=== PATIENT | female | born 1960 | race African-American/Black ===

== ENCOUNTER → 2018-10-10 | Outpatient (CLI) | payer OTHER ==
--- NOTE | 2018-10-10 15:15 | CARD ---
MR#: [id number] Date of Study: 10/10/2018 Ordering Physician: JUSTINE LUCIANO, Referring Physician: JUSTINE LUCIANO, Tech: Lawanda Reynoso LAN APPROVED REPORT EXAM: Two-dimensional and M-mode echocardiogram with Doppler and color Doppler. Other Information Quality : Good INDICATION Palpitations 2D DIMENSIONS RVDd2.6 (2.9-3.5cm)Left Atrium(2D)3.2 (1.6-4.0cm) IVSd0.7 (0.7-1.1cm)Aortic Root(2D)2.2 (2.0-3.7cm) LVDd4.4 (3.9-5.9cm)LVOT Diameter1.9 (1.8-2.4cm) PWd0.8 (0.7-1.1cm)LVDs3.0 (2.5-4.0cm) FS (%) 30.0 %SV41.2 ml LVEF(%)60.0 (>50%) Aortic Valve AoV Peak Jairo.166.8cm/sAoV VTI26.7cm AO Peak GR.11.1mmHgLVOT Peak Jairo.157.7cm/s LVOT VTI 25.18cmAO Mean GR.6mmHg ARMIDA (VMAX)2.77oi0PJJ (VTI)2.65cm2 Mitral Valve MV E Dogwsbva33.0cm/sMV DECEL YKZQ978ai MV A Htfqbsfa041.7cm/sMV HZX729dp E/A Ratio0.6MVA (PHT)2.20cm2 TDI E/Lateral E'13.5E/Medial E'10.5 Tricuspid Valve TR P. Zokpxymf318un/sRAP SDKTJENR3onKl TR Peak Gr.85wcTqXXBJ87cdQs Pulmonary Vein S1 Jdmpmble41.4cm/sD2 Viozdvga73.2cm/s LEFT VENTRICLE The left ventricle is normal size. There is borderline to mild concentric left ventricular hypertroph y. The left ventricular systolic function is normal and the ejection fraction is within normal range. The Ejection Fraction is 60-65%. There is normal LV segmental wall motion. Transmitral Doppler flow pattern is Grade I-abnormal relaxation pattern. RIGHT VENTRICLE The right ventricle is normal size. The right ventricular systolic function is normal. ATRIA The left atrium size is normal. The right atrium size is normal. The interatrial septum is intact wit h no evidence for an atrial septal defect or patent foramen ovale as noted on 2-D or Doppler imaging. AORTIC VALVE The aortic valve is calcified but opens well. Doppler and Color Flow revealed no significant aortic r egurgitation. There is no significant aortic valvular stenosis. MITRAL VALVE The mitral valve is normal in structure and function. There is no evidence of mitral valve prolapse. There is no mitral valve stenosis. Doppler and Color-flow revealed trace mitral regurgitation. TRICUSPID VALVE The tricuspid valve is normal in structure and function. Doppler and Color Flow revealed trace tricus pid regurgitation. There is mild pulmonary hypertension. The PA pressure was estimated at 32 mmHg. Th ere is no tricuspid valve stenosis. PULMONIC VALVE The pulmonic valve is not well visualized. Doppler and Color Flow revealed mild pulmonic valvular reg urgitation. There is no pulmonic valvular stenosis. GREAT VESSELS The aortic root is normal in size. The ascending aorta is not well seen. The IVC is normal in size an d collapses >50% with inspiration. PERICARDIAL EFFUSION There is no evidence of significant pericardial effusion. Critical Notification Critical Value: No <Conclusion> The left ventricular systolic function is normal and the ejection fraction is within normal range. Th e Ejection Fraction is 60-65%. Normal wall motion. There is mild outflow tract obstruction, with a peak velocity of 1.6 m/s likely due to hyperdynamic L V function. Signed by : Justine Luciano, Electronically Approved : 10/10/2018 15:15:01
== END | disposition home or self-care (01) ==
LOC: ECHO 13:34
PROVIDERS: ATTEND Internal Medicine Cardiovascular Disease
DX: I08.8 Other rheumatic multiple valve diseases (principal); I27.20 Pulmonary hypertension, unspecified
CPT/HCPCS: 93306

== ENCOUNTER 2019-01-20 01:48 | Emergency (ER) | payer OTHER ==
[~2019-01-20] VITALS: Ht 157.5 cm; Wt 108.9 kg
[2019-01-20] MEDS ORDERED: fentaNYL PF VIAL 100 MCG/2 ML VIAL IV ONE (03:00)
[2019-01-20] MEDS ORDERED: ETOMIDATE 20 MG/10 ML VIAL. IV ONE (03:00)
[2019-01-20] MEDS ORDERED: IV NORMAL SALINE 1000ML BAG 1,000 ML IV ONE (03:00)
[2019-01-20 03:07] LABS: BASO # 0.1 x10^3/uL (0.0-0.2); BASO % 0 % (0-3); EOS % 0 % (0-3); HEMATOCRIT 36.3 % (36.0-47.0); HEMOGLOBIN 12.4 g/dL (12.0-15.5); LYMPH # 0.6 x10^3/uL (1.0-4.8); LYMPH % 5 % (24-48); MEAN CORPUSCULAR HEMOGLOBIN 29 pg (25-35); MEAN CORPUSCULAR HGB CONC 34 g/dL (31-37); MEAN CORPUSCULAR VOLUME 85 fL (79-100); MONO # 0.6 x10^3/uL (0.0-1.1); MONO % 5 % (0-9); NEUT # 12.1 x10^3/uL (1.8-7.7); NEUT % 90 % (31-73); PLATELET COUNT 332 x10^3/uL (140-400); RED BLOOD COUNT 4.26 x10^6/uL (3.50-5.40); RED CELL DISTRIBUTION WIDTH 13.8 % (11.5-14.5); WHITE BLOOD COUNT 13.4 x10^3/uL (4.0-11.0)
[2019-01-20 03:10] VITALS: BP 124/78
[2019-01-20 03:38] LABS: ALBUMIN 4.2 g/dL (3.4-5.0); ALBUMIN/GLOBULIN RATIO 1.4 (1.0-1.7); CALCIUM 9.7 mg/dL (8.5-10.1); CREATININE 1.1 mg/dL (0.6-1.0); TOTAL PROTEIN 7.2 g/dL (6.4-8.2)
--- NOTE | 2019-01-20 03:38 | PHYS DOC ---
Past Medical History Past Medical History: High Cholesterol, Hypertension, Other Additional Past Medical Histor: Crohn's Past Surgical History: Cholecystectomy, Hysterectomy, Tonsillectomy, Other Additional Past Surgical Histo: L Knee sx Alcohol Use: Occasionally Drug Use: None Adult General Chief Complaint Chief Complaint: SHOULDER INJURY HPI HPI Patient is a 58 year old [f__sex] who presents with [] Review of Systems Review of Systems Constitutional: Denies fever or chills Eyes: Denies redness or eye pain HENT: Denies nasal congestion or sore throat Respiratory: Denies cough or shortness of breath Cardiovascular: Denies chest pain or palpitations GI: Denies abdominal pain, nausea, or vomiting : Denies dysuria or hematuria Musculoskeletal: Denies back pain or joint pain Integument: Denies rash or skin lesions Neurologic: Denies headache, focal weakness or sensory changes Complete systems were reviewed and found to be within normal limits, except as documented in this note. Physical Exam Physical Exam Constitutional: Well developed, well nourished, no acute distress, non-toxic appearance HENT: Normocephalic, atraumatic, oropharynx moist Eyes: PERRL, EOMI, conjunctiva normal, no discharge Neck: Normal range of motion, no tenderness, supple Cardiovascular: Heart rate normal, regular rhythm Lungs & Thorax: Bilateral breath sounds clear to auscultation, no wheezing Abdomen: Soft, no tenderness Skin: Warm, dry, no erythema, no rash Back: No tenderness, no CVA tenderness Extremities: No tenderness, ROM intact, no edema Neurologic: Alert and oriented X 3, normal motor function, normal sensory function, no focal deficits noted Psychologic: Affect normal, judgement normal, mood normal Current Patient Data Vital Signs Vital Signs Date Time Temp Pulse Resp B/P (MAP) Pulse Ox O2 Delivery O2 Flow Rate FiO2 01/20/19 01:50 98.8 103 17 108/58 (75) 95 Room Air 98.8 EKG EKG @0207 NSR at 97bpm, NO ST elevation, t wave inversion III Radiology/Procedures Radiology/Procedures PROCEDURE: SHOULDER 2+V RIGHT Right shoulder AP scapular x-rays 3 views HISTORY: Right shoulder pain after a fall. FINDINGS: Anterior subcoracoid humeral head dislocation is present. Hill-Sachs impaction fracture deformity of the posterior humeral head is likely present, of indeterminate age. Acromioclavicular joint intact. Small chronic appearing ossicles are present. IMPRESSION: Anterior humeral head dislocation as described above. Electronically signed by: Micheal Mejía MD (01/20/2019 3:38 AM) [facility] PROCEDURE: CT HEAD AND CERVICAL SPINE WO CT head without contrast. CT cervical spine without contrast. PQRS statement: CT scans at this facility use dose reduction including either automated exposure control, iterative reconstructions, and /or weight based radiation dosing via mA and kV modification when appropriate to reduce radiation dose to as low as reasonably achievable. TECHNIQUE: Noncontrast imaging of the head and cervical spine was acquired. HISTORY: Pain after fall. CT head findings: No intracranial hemorrhage, mass, hydrocephalus or infarction. Right periorbital soft tissue swelling. Subcentimeter in thickness right periorbital and frontal scalp hematoma. Orbits, mastoids and bones are unremarkable. IMPRESSION: No acute intracranial CT abnormality. Right periorbital and frontal scalp subcentimeter in thickness hematoma. CT cervical spine findings: Craniocervical junction intact. Cervical vertebral body height and alignment intact. No fracture of the cervical spine. Mild anterior disc osteophytes. Left C4-C5 facet spurring. Lung apices and paraspinal tissues are unremarkable. IMPRESSION: No acute osseous injury of the cervical spine. Electronically signed by: Micheal Mejía MD (01/20/2019 4:16 AM) [facility] PROCEDURE: SHOULDER RIGHT 1V Right shoulder AP scapular x-rays 2 views HISTORY: Status post reduction. FINDINGS: There has been reduction of the anterior humeral head dislocation since prior x-rays. There is a Hill-Sachs cortical impaction deformity of the posterior lateral humeral head of indeterminate age. Small ossicle anterior humeral head is noted. Spurring of the acromioclavicular clavicular joint. IMPRESSION: Reduction of the anterior humeral head dislocation. There is a Hill-Sachs cortical impaction deformity of the humeral head. Electronically signed by: Micheal Mejía MD (01/20/2019 3:39 AM) [facility] Course & Med Decision Making Course & Med Decision Making Pertinent Labs and Imaging studies reviewed. (See chart for details) Patient stable for discharge with outpatient follow-up with PCP. Discussed findings and plan with patient and family, who acknowledge understanding and agreement. Dragon Disclaimer Dragon Disclaimer This electronic medical record was generated, in whole or in part, using a voice recognition dictation system. Joint Reduction Progress Verbal consent obtained. Time out performed. Hand hygiene utilized. Wound cleaned with ChloraPrep. Anesthesia obtained via a 25-gauge hypodermic needle with () mL's of lidocaine 2% with epinephrine. Copious irrigation performed. Wound well approximated with (sutures/puja). Patient tolerated procedure well and without difficulty. Empiric antibiotic ointment applied prior to sterile dressing. Departure Departure Impression: Primary Impression: Fall Additional Impressions: Shoulder dislocation Head contusion Hypokalemia Hypomagnesemia Disposition: HOME, SELF-CARE Condition: STABLE Referrals: IZA SIMMONS MD (PCP) ANA HOLLOWAY MD Patient Instructions: Facial or Scalp Contusion, Velw-lb-Ztjl, Fall Prevention and Home Safety, Epdc-es-Jgof, Hypokalemia-Brief, Hypomagnesemia, Potassium Content of Foods, Shoulder Dislocation, Zjvo-pw-Tgbc, Shoulder Immobilizer Scripts Hydrocodone/Apap 5-325 (NORCO 5-325 TABLET) 1 Each Tablet 0.5-1 TAB PO PRN Q6HRS PRN for PAIN, #10 TAB 0 Refills Prov: SIOBHAN SIMS Sujata BRUMFIELD 01/20/19 MODERATE SEDATION ASSESSMENT* RISKS/ALTERNATIVES Risks/Alternatives Risks and alternatives of this type of sedation and procedure discussed with: RISK/ALTERNATIVES: Patient H & P ON CHART H & P H & P on chart and reviewed for co-morbid conditions and appropriate labs. H&P ON CHART: Yes STATUS PREG STATUS ASSESSED: N/A MEDS/ALLERGIES REVIEWED Meds/Allergies Reviewed Medications and Allergies including time and route of recently administered narcotics and sedatives. MEDS/ALLERGIES REVIEWED: Yes ASA RATING ASA RATING: II AIRWAY ASSESSMENT Airway Assessment Airway patency, oral function limitations, presence of caps, crowns, dentures, partials, and ability to extend neck assessed. AIRWAY ASSESSMENT: Yes MALLAMPATI SCORE MALLAMPATI SCORE: III PRE-SEDATION ASSESSMENT PRE-SEDATION ASSESSMENT: Yes Problem Qualifiers Primary Impression: Fall Encounter type: initial encounter Qualified Codes: W19.XXXA - Unspecified fall, initial encounter Additional Impressions: Shoulder dislocation Encounter type: initial encounter Laterality: right Qualified Codes: S43.004A - Unspecified dislocation of right shoulder joint, initial encounter Head contusion Encounter type: initial encounter Contusion of head detail: unspecified part of head Qualified Codes: S00.93XA - Contusion of unspecified part of head, initial encounter SIOBHAN SIMS DO Jan 20, 2019 03:38
[2019-01-20 03:39] LABS: GFR 61.5; MAGNESIUM 1.7 mg/dL (1.8-2.4); POTASSIUM 3.1 mmol/L (3.5-5.1)
--- NOTE | 2019-01-20 03:41 | RAD ---
Right shoulder AP scapular x-rays 3 views HISTORY: Right shoulder pain after a fall. FINDINGS: Anterior subcoracoid humeral head dislocation is present. Hill-Sachs impaction fracture deformity of the posterior humeral head is likely present, of indeterminate age. Acromioclavicular joint intact. Small chronic appearing ossicles are present. IMPRESSION: Anterior humeral head dislocation as described above. Electronically signed by: Micheal Mejía MD (01/20/2019 3:38 AM) [facility]
--- NOTE | 2019-01-20 03:42 | RAD ---
Right shoulder AP scapular x-rays 2 views HISTORY: Status post reduction. FINDINGS: There has been reduction of the anterior humeral head dislocation since prior x-rays. There is a Hill-Sachs cortical impaction deformity of the posterior lateral humeral head of indeterminate age. Small ossicle anterior humeral head is noted. Spurring of the acromioclavicular clavicular joint. IMPRESSION: Reduction of the anterior humeral head dislocation. There is a Hill-Sachs cortical impaction deformity of the humeral head. Electronically signed by: Micheal Mejía MD (01/20/2019 3:39 AM) [facility]
--- NOTE | 2019-01-20 04:19 | RAD ---
CT head without contrast. CT cervical spine without contrast. PQRS statement: CT scans at this facility use dose reduction including either automated exposure control, iterative reconstructions, and /or weight based radiation dosing via mA and kV modification when appropriate to reduce radiation dose to as low as reasonably achievable. TECHNIQUE: Noncontrast imaging of the head and cervical spine was acquired. HISTORY: Pain after fall. CT head findings: No intracranial hemorrhage, mass, hydrocephalus or infarction. Right periorbital soft tissue swelling. Subcentimeter in thickness right periorbital and frontal scalp hematoma. Orbits, mastoids and bones are unremarkable. IMPRESSION: No acute intracranial CT abnormality. Right periorbital and frontal scalp subcentimeter in thickness hematoma. CT cervical spine findings: Craniocervical junction intact. Cervical vertebral body height and alignment intact. No fracture of the cervical spine. Mild anterior disc osteophytes. Left C4-C5 facet spurring. Lung apices and paraspinal tissues are unremarkable. IMPRESSION: No acute osseous injury of the cervical spine. Electronically signed by: Micheal Mejía MD (01/20/2019 4:16 AM) [facility]
[2019-01-20] MEDS ORDERED: HYDR-3164 PO (05:03)
[2019-01-20] MEDS ORDERED: POTASSIUM CHLORIDE 20 MEQ TABLET.ER. PO ONE (05:15)
[2019-01-20] MEDS ORDERED: MAGNESIUM CHLORIDE ER 64 MG TABLET.ER PO ONE (05:15)
[2019-01-20 05:30] VITALS: BP 161/82
[2019-01-20 06:13] LABS: % BANDS 4 % (0-9); % LYMPHS 6 % (24-48); % MONOS 4 % (0-10); % SEGS 86 % (35-66); PLT ESTIMATE ADEQUATE (ADEQUATE)
--- NOTE | 2019-01-20 06:16 | EKG ---
[facility] [address] [place] [address] Test Date: 2019-01-20 Test Time: 02:07:24 Pat Name: MIKE BRAGG Department: Room: Gender: F Business Operations Director: CRISTAL : 1960 Requested By: SIOBHAN SIMS Order Number: [id number] Reading MD: Measurements Intervals [place] Rate: 96 P: 45 [place]: 162 QRS: 43 QRSD: 86 T: 19 QT: 338 QTc: 433 Interpretive Statements SINUS RHYTHM NON SPECIFIC T ABNORMALITY BORDERLINE ECG No previous ECG available for comparison
== END 2019-01-20 05:55 | disposition home or self-care (01) ==
LOC: ER 01:48 → 2 SOUTH 01:57 → UNDOADMIN 01:57 → ER 05:55
DX: S43.014A Anterior dislocation of right humerus, initial encounter (principal); S00.03XA Contusion of scalp, initial encounter; E87.6 Hypokalemia; E83.42 Hypomagnesemia; E78.00 Pure hypercholesterolemia, unspecified; I10 Essential (primary) hypertension; Z90.49 Acquired absence of other specified parts of digestive tract; Z90.710 Acquired absence of both cervix and uterus; Z90.89 Acquired absence of other organs; W18.39XA Other fall on same level, initial encounter; Y93.89 Activity, other specified; Y92.89 Other specified places as the place of occurrence of the external cause; Y99.8 Other external cause status
CPT/HCPCS: 23650; 36415; 70450; 72125; 73020; 73030; 80053; 83735; 84484; 85007; 85025; 93005; 99285; J3010; J7030